=== PATIENT | male | born 2000 | race Caucasian/White ===

== ENCOUNTER 2019-06-24 17:49 | Emergency (ER) | payer MEDICAID ==
[~2019-06-24] VITALS: Ht 188 cm; Wt 106.6 kg
[2019-06-24 19:39] LABS: Salicylate < 1.7 mg/dL (2.8-20.0)
[2019-06-24 19:43] LABS: Acetaminophen < 2.0 ug/mL (10-30)
[2019-06-24 21:29] LABS: Alcohol, Urine < 3.0 mg/dL (0-5); Amphetamine Screen, Urine NEGATIVE (NEGATIVE); Barbiturate Scree,Urine NEGATIVE (NEGATIVE); Benzodiazephine Screen, Urine NEGATIVE (NEGATIVE); Cannabinoid Screen, Urine POSITIVE (NEGATIVE); Cocaine Screen, Urine NEGATIVE (NEGATIVE); Opiate Scree,Urine NEGATIVE (NEGATIVE); Phencyclidine Screen, Urine NEGATIVE (NEGATIVE)
[2019-06-25] MEDS: CITALOPRAM HYDROBR 20 MG TAB PO SCH (18:13)
[2019-06-26] MEDS: CITALOPRAM HYDROBR 20 MG TAB PO SCH (18:44)
[2019-06-26] MEDS ORDERED: ONDANSETRON ODT 4 MG TAB PO ONE (21:00)
[2019-06-27 07:42] VITALS: BP 117/51
== END 2019-06-27 11:36 | disposition home or self-care (01) ==
LOC: ER 17:56
DX: R45.851 Suicidal ideations (principal); F32.9 Major depressive disorder, single episode, unspecified; F84.0 Autistic disorder; F12.90 Cannabis use, unspecified, uncomplicated
CPT/HCPCS: 36415; 80307; 80320; 80329

== ENCOUNTER 2020-01-30 13:03 | Emergency (ER) | payer MEDICAID ==
[~2020-01-30] VITALS: Ht 188 cm; Wt 98.9 kg
[2020-01-30 13:18] VITALS: BP 108/56
[2020-01-30 14:42] LABS: Basophils # (auto) 0 10 ^3/uL (0-0.2); Basophils % (auto) 0.3 % (0.0-2.0); Eosinophils # (auto) 0.1 10 ^3/uL (0-0.8); Eosinophils % (auto) 1.3 % (0.0-7.0); Hematocrit 45.6 % (41.0-53.0); Hemoglobin 15.6 g/dL (13.5-17.5); Lymphocytes # (auto) 2.2 10 ^3/uL (0.4-5.4); Lymphocytes % (auto) 33.9 % (10.0-50.0); Mean Corpuscular Hgb Conc. 34.1 g/dL (32.0-36.0); Mean Corpuscular Volume 90.8 fL (80.0-100.0); Monocytes # (auto) 0.7 10 ^3/uL (0-1.3); Monocytes % (auto) 10.5 % (0.0-12.0); Neutrophils # (auto) 3.5 10 ^3/uL (1.6-8.6); Nucleated Red Blood Cells % 0.3 %; Platelet Count (auto) 238 10^3/uL (140-450); Red Blood Cells 5.02 10^6/uL (4.5-5.90); Red Cell Distribution Width 12.8 % (11.8-14.3); White Blood Cell 6.4 10^3/uL (4.4-10.8)
[2020-01-30 15:07] LABS: BUN/Creatinine Ratio 12.3; Bilirubin, Total 0.4 mg/dL (0.2-1.0); Total Protein 8.2 g/dL (6.4-8.2)
[2020-01-30 15:30] LABS: Urine Bacteria NONE SEEN /hpf (None Seen); Urine Blood Negative /uL (Negative); Urine Specific Gravity 1.023 (1.001-1.035); Urine WBC <1 /hpf (0 - 3)
== END 2020-01-30 15:19 | disposition left against medical advice (07) ==
LOC: ER 13:07
DX: R11.2 Nausea with vomiting, unspecified (principal); Z53.21 Procedure and treatment not carried out due to patient leaving prior to being seen by health care provider
CPT/HCPCS: 36415; 80053; 81001; 85025